=== PATIENT | male | born 1950 | race Caucasian/White ===

== ENCOUNTER → 2020-07-25 | Outpatient (CLI) | payer MEDICARE ==
[~2020-07-25] MED LIST: ASPIRIN EC81 MG PO; CENTRUM SILVER1 EAC1 PO; CRESTOR 10 MG T10 MG PO; FISH OIL 1,0001 EAC3 PO; LISINOPRIL30 MG PO; METOPROLOL SUCC50 MG PO; PLAVIX 75 MG TA75 MG PO; TAMSULOSIN HCL0.4 MG PO
[2020-07-25 09:54] LABS: HEMOGLOBIN 15.8 gm/dl (14.0-17.5); RED BLOOD COUNT 5.17 M/UL (4.20-5.50); WHITE BLOOD COUNT 8.2 K/UL (4.5-11.0)
[2020-07-25 10:16] LABS: BUN/CREATININE RATIO 17 (0-10)
== END ==
LOC: OPSV2 08:59
PROVIDERS: Surgery
DX: Z01.818 Encounter for other preprocedural examination (principal); R94.31 Abnormal electrocardiogram [ECG] [EKG]
CPT/HCPCS: 36415; 71046; 80053; 81001; 85025; 85610; 85730; 86850; 86900; 86901; 93005

== ENCOUNTER → 2020-07-26 | Day surgery (SDC) | payer MEDICARE ==
[~2020-07-26] VITALS: Ht 180.3 cm; Wt 79.4 kg
== END | disposition home or self-care (01) ==
LOC: OR 07-25 15:00 → KOH-I 07-25 15:00 → OR 05:59
PROVIDERS: Surgery
PROC: B41GZZZ Fluoroscopy of Left Lower Extremity Arteries (ICD-10-PCS; 2020-07-26)
PROC: 047D3DZ Dilation of Left Common Iliac Artery with Intraluminal Device, Percutaneous Approach (ICD-10-PCS; principal; 2020-07-26 07:30)
PROC: 047L35Z Dilation of Left Femoral Artery with Two Drug-eluting Intraluminal Devices, Percutaneous Approach (ICD-10-PCS; 2020-07-26 07:30)
DX: I70.213 Atherosclerosis of native arteries of extremities with intermittent claudication, bilateral legs (principal); I65.23 Occlusion and stenosis of bilateral carotid arteries; I10 Essential (primary) hypertension; E78.5 Hyperlipidemia, unspecified; J44.9 Chronic obstructive pulmonary disease, unspecified; F17.200 Nicotine dependence, unspecified, uncomplicated; Z79.82 Long term (current) use of aspirin; Z79.899 Other long term (current) drug therapy
CPT/HCPCS: 76000; C1769; C1876; C2623; J0690; J1644; J2001; J2405; J2704; J2710; J2720; J3010; J7030; J7040; J7050; J7120; Q9962